=== PATIENT | female | born 1970 | race Caucasian/White ===

== ENCOUNTER → 2017-09-09 | Outpatient (CLI) | payer OTHER, MEDICAID ==
[2016-05-19 14:12] VITALS: BP 118/75
--- NOTE | 2017-09-09 14:15 | CT ---
HISTORY: Hematuria and bladder pain x1 week. Study: CT abdomen and pelvis without contrast Comparison: CT abdomen/pelvis dated February 16, 2016. Technique: Multiple axial images of the abdomen and pelvis were obtained from the lung bases to the pubic symphy sis without the administration of IV contrast. Dose reduction techniques including Automated Exposur e Control (AEC) and adjustment of mA and kV were utilized. Findings: Limited study secondary to lack of IV and oral contrast. The visualized portions of the lung bases are unremarkable. The liver, spleen, pancreas, kidneys, an d adrenal glands are unremarkable in their CT appearance. The gallbladder is surgically absent. No s ignificant mesenteric lymphadenopathy or stranding can be observed. No free fluid or free air is see n within the abdomen. Limited evaluation of the bowel secondary to lack of oral contrast and collaps e. Scattered colonic diverticulum without evidence of diverticulitis. The large and small bowel are otherwise unremarkable. The appendix appears normal. The uterus and ovaries appear surgically absent. The urinary bladder is grossly unremarkable. The bony structures are grossly intact. IMPRESSION: No CT evidence of acute abdominal/pelvic pathology. Reported By:
== END ==
LOC: RAD 13:44
PROVIDERS: ATTEND Internal Medicine
DX: R31.9 Hematuria, unspecified (principal); N31.9 Neuromuscular dysfunction of bladder, unspecified; Z87.442 Personal history of urinary calculi
CPT/HCPCS: 74176